=== PATIENT | female | born 1985 | race Caucasian/White ===

== ENCOUNTER 2017-11-15 17:00 | Inpatient (IN) | payer OTHER ==
[2017-11-15] MEDS: LR 1,000 ML IV PRN (19:46)
[2017-11-15] MEDS ORDERED: OXYTOCIN 20 UNIT in LR 1,000 ML IV PRN (19:47)
[2017-11-15] MEDS ORDERED: OLIVE OIL 118 ML BTL MISC PRN (19:47)
[2017-11-15] MEDS ORDERED: TERBUTALINE SULFATE 1 MG/ML VIAL IV PRN (19:47)
[2017-11-15] MEDS ORDERED: EPSOM SALT 454 GM TP PRN (19:47)
[2017-11-15] MEDS ORDERED: AMMONIA AROMATIC 1 EACH AMP IH PRN (19:47)
[2017-11-15 20:23] LABS: PLATELET COUNT 199 10^3/uL (150-400)
--- NOTE | 2017-11-15 20:24 | OBPROG ---
Labor Progress Note Assessment/Plan: Assessment:cat 1 fhr denies pain cytotec for ripening of cervix. discussed r/b/a/ pih labs p to C ratio for urine routine meds for asthma and allergys discussed POC with family and patient ok with POC Plan:iol, ripening with cytotec for gestational hyper tension/ consulted on POC with Dr. Smith 11/15/17 20:22 Subjective/Intrapartum Course: 11/15/17 20:21 Doing well denies pain. Denies questions. Discussed poc cytotec . probable davis bulb when able with dilation - SVE Dilation (cm): 1 Effacement (%): 50 Station: -3 Membranes: Intact - FHR Assessment Og FHR (bpm): 125 FHR Pattern Variability: Moderate FHR Category: 1 - Physical Exam General Appearance: WD/WN, alert, no apparent distress Respiratory: chest non-tender, lungs clear, normal breath sounds Cardiac/Chest: regular rate, rhythm Abdomen: normal bowel sounds Extremities: normal range of motion, Chevy's sign (negative bilaterally) DTR- Lower Extremities: Knee (R): 1+, Knee (L): 1+ (no clonus) Skin: normal color, warm/dry Neuro/Psych: no motor/sensory deficits, alert, normal mood/affect, oriented x 3 Oxytocin Orders Assessment - Pre-Induction/Augmentation Assessment Gestational Age: 37 week(s) and 2 day(s) ICD10 Worksheet Patient Problems: Problems Problem Status Onset iol for gestational hypertension Acute
[2017-11-15] MEDS ORDERED: ZOLPIDEM TARTRATE 5 MG TAB PO PRN (20:33)
[2017-11-15] MEDS ORDERED: BECLOMETHASONE QVAR 80 MDI IH SCH (21:00)
[2017-11-15] MEDS ORDERED: MISOPROSTOL 100 MCG TAB PO ONE (21:00)
[2017-11-15] MEDS: BECLOMETHASONE QVAR 80 MDI IH SCH (21:19)
--- NOTE | 2017-11-15 22:54 | GHP ---
[f rep st] HISTORY AND PHYSICAL DATE OF ADMISSION: 11/15/2017 HISTORY OF PRESENT ILLNESS: The patient is a 32-year-old, 1, para 0, with an EDC of 12/04/19 18, which gives her a gestational age of 37 and 2/7 weeks', who comes in for induction of labor for g estational hypertension. States feeling positive movement. Denies leaking, bleeding, cramping . Has been routinely seen with [facility] since 9 and 1/7 weeks' at 05/03/2017. Throughou t the , over time patient, has had elevated blood pressures. On 11/10/2017, 166/80. PIH la bs were within normal limits. The patient is GBS negative. MEDICAL HISTORY: The patient has a history of asthma, mild scoliosis, has nasal polyps, aspirin sens itivity. SURGERIES: Nasal polypectomy, ACL knee surgery. SOCIAL HISTORY: Patient is to [place]. Denies tobacco use. Denies drug use. With this pregn michelle, had a low-lying placenta, gestational hypertension. GYNECOLOGICAL HISTORY: Positive OCP use, NuvaRing and Mirena. Last Pap was 04/07/2017 that was with in normal limits. FAMILY HISTORY: Noncontributory. PHYSICAL ASSESSMENT: GENERAL: Patient is awake, alert, oriented x3. LUNGS: Clear bilaterally. AB DOMEN: Bowel sounds are positive in all 4 quadrants. EXTREMITIES: DTRs are 1+ bilaterally. No jordyn nus. Homans sign is negative bilaterally. Patient denies PIH symptoms. Blood pressure is elevated however not alarmingly so. PELVIC: The patient's cervix per Dr. Reid today in the office. Patien t was closed thick and high. A De Leon bulb was needed to be placed. PLAN OF CARE: 1. GBS negative. 2. Cytotec for ripening of cervix. 3. Consult Dr. Odalys Smith on plan of care. 4. De Leon bulb placement when able. 5. PIH labs as well as a P to C ratio. /[id number]/MODL
[2017-11-16] MEDS ORDERED: MISOPROSTOL 100 MCG TAB PO ONE ×2 (01:00→05:00)
[2017-11-16] MEDS: ACETAMINOPHEN 325 MG TAB PO PRN (01:41)
--- NOTE | 2017-11-16 04:41 | OBPROG ---
Labor Progress Note Assessment/Plan: Assessment:cat 1 fhr denies pain cytotec for ripening of cervix. 3 rd doseambien to rest pih labs wnl p to c 445 routine meds for asthma and allergys ordered irregular contractions Plan:iol, ripening with cytotec for gestational hyper tension/ consulted on POC with Dr. Smith 11/15/17 20:22 11/16/17 04:39 Subjective/Intrapartum Course: 11/15/17 20:21 Doing well denies pain. Denies questions. Discussed poc cytotec . probable davis bulb when able with dilation 11/16/17 04:38 Sleeping through irregular contractions Objective: 11/15/17 19:45 11/15/17 19:45 Patient ABO/Rh O POSITIVE 11/15/17 19:45 Uric Acid 5.3 mg/dL (2.5-6.8) 11/15/17 19:45 Total Bilirubin 0.2 mg/dL (0.1-1.4) 11/15/17 19:45 Conjugated Bilirubin 0.2 mg/dL (0.0-0.5) 11/15/17 19:45 Unconjugated Bilirubin 0.0 mg/dL (0.0-1.1) 11/15/17 19:45 AST 28 IU/L (14-46) 11/15/17 19:45 ALT 38 IU/L (9-52) 11/15/17 19:45 Lactate Dehydrogenase 666 IU/L (313-618) H 11/15/17 19:45 - SVE Membranes: Intact - Contraction Pattern Assessment Current Contraction Pattern: Irregular - FHR Assessment Og FHR (bpm): 145 FHR Pattern Variability: Moderate FHR Category: 2 Oxytocin Orders Assessment - Pre-Induction/Augmentation Assessment Gestational Age: 37 week(s) and 2 day(s) ICD10 Worksheet Patient Problems: Problems Problem Status Onset iol for gestational hypertension Acute
[2017-11-16] MEDS: CETIRIZINE 10 MG TAB PO SCH (09:20)
[2017-11-16] MEDS: BECLOMETHASONE QVAR 80 MDI IH SCH ×2 (09:23→21:43)
[2017-11-16] MEDS: MONTELUKAST SODIUM 10 MG TAB PO SCH (09:26)
--- NOTE | 2017-11-16 09:39 | OBPROG ---
Labor Progress Note Assessment/Plan: Assessment: IUP at 37 wks gestational hypertension for induction unfavorable cx and rec'd cytotec through noc Plan: cx now FT/50/soft will attempt davis placement 11/16/17 09:36 Subjective/Intrapartum Course: 11/15/17 20:21 Doing well denies pain. Denies questions. Discussed poc cytotec . probable davis bulb when able with dilation 11/16/17 04:38 Sleeping through irregular contractions 11/16/17 09:37 Pt slept through noc. not feeling ctxns. no COSEM or visual changes. cx FT/50/ soft -- will attempt davis Objective: 11/15/17 19:45 11/15/17 19:45 Patient ABO/Rh O POSITIVE 11/15/17 19:45 Uric Acid 5.3 mg/dL (2.5-6.8) 11/15/17 19:45 Total Bilirubin 0.2 mg/dL (0.1-1.4) 11/15/17 19:45 Conjugated Bilirubin 0.2 mg/dL (0.0-0.5) 11/15/17 19:45 Unconjugated Bilirubin 0.0 mg/dL (0.0-1.1) 11/15/17 19:45 AST 28 IU/L (14-46) 11/15/17 19:45 ALT 38 IU/L (9-52) 11/15/17 19:45 Lactate Dehydrogenase 666 IU/L (313-618) H 11/15/17 19:45 - SVE Dilation (cm): 1 (FT) Effacement (%): 50 Station: -3 Membranes: Intact - Contraction Pattern Assessment Current Contraction Pattern: Irregular - FHR Assessment Og FHR (bpm): 140 FHR Pattern Variability: Moderate FHR Category: 1 Oxytocin Orders Assessment - Pre-Induction/Augmentation Assessment Gestational Age: 37 week(s) and 2 day(s) ICD10 Worksheet Patient Problems: Problems Problem Status Onset iol for gestational hypertension Acute
--- NOTE | 2017-11-16 11:16 | OBPROG ---
Labor Progress Note Assessment/Plan: Assessment: IUP at 37 wks gestational hypertension for induction davis placement for ripening Plan: cx now FT/50/soft dvais placement 11/16/17 09:36 11/16/17 11:13 Subjective/Intrapartum Course: 11/15/17 20:21 Doing well denies pain. Denies questions. Discussed poc cytotec . probable davis bulb when able with dilation 11/16/17 04:38 Sleeping through irregular contractions 11/16/17 09:37 Pt slept through noc. not feeling ctxns. no COSME or visual changes. cx FT/50/ soft -- will attempt davis 11/16/17 11:13 Pt doing ok, not having COSME or visual changes, ok with davis -- after placement, pt doing fine, mild cramps. Disc baby's status looking good - will take off monitoring for now, will give davis 8 hours before reassessing. Objective: 11/15/17 19:45 11/15/17 19:45 Patient ABO/Rh O POSITIVE 11/15/17 19:45 Uric Acid 5.3 mg/dL (2.5-6.8) 11/15/17 19:45 Total Bilirubin 0.2 mg/dL (0.1-1.4) 11/15/17 19:45 Conjugated Bilirubin 0.2 mg/dL (0.0-0.5) 11/15/17 19:45 Unconjugated Bilirubin 0.0 mg/dL (0.0-1.1) 11/15/17 19:45 AST 28 IU/L (14-46) 11/15/17 19:45 ALT 38 IU/L (9-52) 11/15/17 19:45 Lactate Dehydrogenase 666 IU/L (313-618) H 11/15/17 19:45 - SVE Dilation (cm): 1 Effacement (%): 50 Station: -3 Membranes: Intact - Contraction Pattern Assessment Current Contraction Pattern: Irregular - FHR Assessment Og FHR (bpm): 150 FHR Pattern Variability: Moderate FHR Category: 1 - Procedures Non-surgical Procedures: Other (Specify) (davis cath placement into cervix. cx cleansed off with betadine 4x4s - four, and then davis placed without problems into cx) Oxytocin Orders Assessment - Pre-Induction/Augmentation Assessment Gestational Age: 37 week(s) and 2 day(s) ICD10 Worksheet Patient Problems: Problems Problem Status Onset iol for gestational hypertension Acute
[2017-11-16] MEDS ORDERED: ALBUTEROL 60 PUFFS/8 GM MDI IH PRN (17:35)
[2017-11-16 18:36] LABS: PLATELET COUNT 186 10^3/uL (150-400)
[2017-11-16] MEDS ORDERED: LR 500 ML IV PRN (20:08)
[2017-11-16] MEDS ORDERED: OXYTOCIN 30 UNIT in NS 500 ML IV SCH (20:15)
--- NOTE | 2017-11-16 20:16 | OBPROG ---
Labor Progress Note Assessment/Plan: Assessment: IUP at 37 wks, B/P increased after some bld noted with cath - labs stable gestational hypertension for induction asthma davis replaced for further ripening Plan: cx now - davis placement 11/16/17 09:36 11/16/17 11:13 11/16/17 20:10 Subjective/Intrapartum Course: 11/15/17 20:21 Doing well denies pain. Denies questions. Discussed poc cytotec . probable davis bulb when able with dilation 11/16/17 04:38 Sleeping through irregular contractions 11/16/17 09:37 Pt slept through noc. not feeling ctxns. no COSME or visual changes. cx FT/50/ soft -- will attempt davis 11/16/17 11:13 Pt doing ok, not having COSME or visual changes, ok with davis -- after placement, pt doing fine, mild cramps. Disc baby's status looking good - will take off monitoring for now, will give davis 8 hours before reassessing. 11/16/17 20:11 some bld noted with cath - pt's anxiety increased and b/p up to 170s/ 90s..repeat PIH labs normal. b/p better - to 150s/70s with resting. reporting cramping /10. davis out and cx - Objective: 11/16/17 18:22 11/16/17 18:22 Patient ABO/Rh O POSITIVE 11/15/17 19:45 Uric Acid 5.6 mg/dL (2.5-6.8) 11/16/17 18:22 Total Bilirubin 0.2 mg/dL (0.1-1.4) 11/16/17 18:22 Conjugated Bilirubin 0.1 mg/dL (0.0-0.5) 11/16/17 18:22 Unconjugated Bilirubin 0.1 mg/dL (0.0-1.1) 11/16/17 18:22 AST 24 IU/L (14-46) 11/16/17 18:22 ALT 38 IU/L (9-52) 11/16/17 18:22 Lactate Dehydrogenase 586 IU/L (313-618) 11/16/17 18:22 - SVE Dilation (cm): 1 Effacement (%): 80 Station: -2 Membranes: Intact - Contraction Pattern Assessment Current Contraction Pattern: Irregular - FHR Assessment Og FHR (bpm): 140 FHR Pattern Variability: Moderate FHR Category: 1 - Procedures Non-surgical Procedures: Other (Specify) (davis replaced - easy replacement with another davis to cont ripening) Oxytocin Orders Assessment - Pre-Induction/Augmentation Assessment Gestational Age: 37 week(s) and 2 day(s) ICD10 Worksheet Patient Problems: Problems Problem Status Onset iol for gestational hypertension Acute
[2017-11-17] MEDS: LR 1,000 ML IV PRN ×2 (06:00→20:33)
[2017-11-17] MEDS ORDERED: OLIVE OIL 118 ML BTL ONE (06:37)
[2017-11-17] MEDS ORDERED: LIDOCAINE 1% 300 MG/30 ML SDV ONE (06:37)
[2017-11-17] MEDS ORDERED: OXYTOCIN 10 UNIT/ML VIAL ONE (06:38)
[2017-11-17] MEDS ORDERED: AMMONIA AROMATIC 1 EACH AMP IH ONE (06:38)
[2017-11-17] MEDS ORDERED: TERBUTALINE SULFATE 1 MG/ML VIAL ONE (06:38)
[2017-11-17] MEDS ORDERED: MISOPROSTOL 200 MCG TAB ONE (06:38)
--- NOTE | 2017-11-17 07:50 | OBPROG ---
Labor Progress Note Assessment/Plan: Assessment: Plan: Subjective/Intrapartum Course: 11/15/17 20:21 Doing well denies pain. Denies questions. Discussed poc cytotec . probable davis bulb when able with dilation 11/16/17 04:38 Sleeping through irregular contractions 11/16/17 09:37 Pt slept through noc. not feeling ctxns. no COSME or visual changes. cx FT/50/ soft -- will attempt davis 11/16/17 11:13 Pt doing ok, not having COSME or visual changes, ok with davis -- after placement, pt doing fine, mild cramps. Disc baby's status looking good - will take off monitoring for now, will give davis 8 hours before reassessing. 11/16/17 20:11 some bld noted with cath - pt's anxiety increased and b/p up to 170s/ 90s..repeat PIH labs normal. b/p better - to 150s/70s with resting. reporting cramping /10. davis out and cx 1-2/-2 11/17/17 07:54 Patient is doing well this morning and is starting starting to feel cramping. + FM + vaginal spotting. Objective: 11/16/17 18:22 11/16/17 18:22 Patient ABO/Rh O POSITIVE 11/15/17 19:45 Uric Acid 5.6 mg/dL (2.5-6.8) 11/16/17 18:22 Total Bilirubin 0.2 mg/dL (0.1-1.4) 11/16/17 18:22 Conjugated Bilirubin 0.1 mg/dL (0.0-0.5) 11/16/17 18:22 Unconjugated Bilirubin 0.1 mg/dL (0.0-1.1) 11/16/17 18:22 AST 24 IU/L (14-46) 11/16/17 18:22 ALT 38 IU/L (9-52) 11/16/17 18:22 Lactate Dehydrogenase 586 IU/L (313-618) 11/16/17 18:22 - SVE Dilation (cm): 3 Effacement (%): Less than 50 Station: -3 Membranes: Intact - Contraction Pattern Assessment Current Contraction Pattern: Irregular - FHR Assessment Og FHR (bpm): 130 FHR Pattern Variability: Moderate FHR Category: 1 - Procedures Non-surgical Procedures: Other (Specify) (davis replaced - easy replacement with another davis to cont ripening) - AP Antepartum Course: 11/17/17 07:56 IUP at 37 weeks IOL Hypertension normal blood pressured 11/17/17 07:57 PLan Davis balloon removed Cephalic presentation confirmed by ultrasound Ok for regular diet Pitocin PLan for AROM Oxytocin Orders Assessment - Pre-Induction/Augmentation Assessment Gestational Age: 37 week(s) and 2 day(s) ICD10 Worksheet Patient Problems: Problems Problem Status Onset iol for gestational hypertension Acute
[2017-11-17] MEDS: BECLOMETHASONE QVAR 80 MDI IH SCH ×2 (09:07→23:09)
[2017-11-17] MEDS: CETIRIZINE 10 MG TAB PO SCH (09:37)
[2017-11-17] MEDS ORDERED: fentaNYL 2MCG/ML/BUP 0.1% RTU 100 ML BAG EP ONE (13:45)
[2017-11-17] MEDS ORDERED: PHENYLEPHRINE HCL 100 MCG/ML SYR ONE (13:45)
[2017-11-17] MEDS ORDERED: BUPIVACAINE 0.25% 30 ML SDV ONE (13:45)
[2017-11-17] MEDS ORDERED: PHENYLEPHRINE HCL 100 MCG/ML SYR IVP PRN (14:06)
[2017-11-17] MEDS ORDERED: NALOXONE HCL 0.4 MG/ML INJ IVP PRN (14:06)
[2017-11-17] MEDS ORDERED: ONDANSETRON 4 MG/2 ML VIAL IVP PRN (14:06)
--- NOTE | 2017-11-17 14:10 | PREANESOB ---
Obstetric Pre-Anesthesia Info - General Info Proposed Procedure: CSE for L -> : 1 Para: 0 FAB: 12/04/17 Gestational Age: 37 week(s) and 2 day(s) - Info Status: Premature (37 3/7 PIH induction) - Labor Status Cervical Dilation per last OB SVE: 3 Station per last OB SVE: -3 Pitocin: Planned PIH: Moderate Magnesium Sulfate in Use: No Indications for Labor Analgesia: Augmentation of Labor, Induction of Labor Labor Epidural: Proposed Anesthesia ROS: triad asthma Allergies/Adverse Reactions: Allergy/AdvReac Type Severity Reaction Status Date / Time aspirin Allergy Verified 11/15/17 18:30 NSAIDS (Non-Steroidal Allergy sneezy and Verified 11/16/17 07:06 Anti-Inflamma wheezing Home Medications: Medication Instructions Recorded CETIRIZINE HCL 10 mg DAILY 11/15/17 Montelukast Sodium 11/15/17 Qvar 80 (*) PRN 11/15/17 Visit Medications: Generic Name Dose Route Start Last Admin Trade Name Mel PRN Reason Stop Dose Admin Acetaminophen 650 mg 11/16/17 01:26 11/16/17 01:41 Tylenol PO 05/15/18 01:25 650 mg Q4HRS PRN Administration Pain, Mild/Fever, Can Take PO Albuterol 2 puffs 11/16/17 17:35 Proventil Inhaler 05/15/18 17:34 Q4HRS PRN Short of Breath/Dyspnea Ammonia (Aromatic Spirit) 1 each 11/15/17 19:47 Ammonia Aromatic 11/25/17 19:46 ONCE PRN Fainting Beclomethasone Dipropionate 1 puffs 11/15/17 21:00 11/17/17 09:07 Qvar 80 05/14/18 20:59 1 puffs BID ROB Administration Cetirizine HCl 10 mg 11/16/17 09:00 11/17/17 09:37 Zyrtec PO 05/15/18 08:59 10 mg DAILY ROB Administration Oxytocin 20 unit/ Lactated 1,002 mls @ 150 mls/hr 11/15/17 19:47 Ringer's IV PRN PRN Post- bleeding Lactated Ringer's 500 mls @ 500 mls/hr 11/16/17 20:08 Lr IV 11/17/17 20:08 PRN PRN Maternal Hypotension Oxytocin 30 unit/ Sodium 503 mls @ 0 mls/hr 11/16/17 20:15 11/17/17 06:02 Chloride IV 05/15/18 20:14 503 mls CONT ROB Administration Protocol Per Protocol Magnesium Sulfate 454 gm 11/15/17 19:47 Epsom Salt TP 05/14/18 19:46 Q1H PRN perineal discomfort Montelukast Sodium 10 mg 11/16/17 18:00 11/16/17 09:26 Singulair PO 05/15/18 17:59 10 mg DAILY@1800 ROB Administration [place] Oil 118 ml 11/15/17 19:47 Sweet Oil MISC 05/14/18 19:46 ONCE PRN perineal massage Terbutaline Sulfate 0.25 mg 11/15/17 19:47 Brethine IV 05/14/18 19:46 ONCE PRN Tachysystole Zolpidem Tartrate 10 mg 11/15/17 20:33 11/16/17 01:21 Ambien PO 05/14/18 20:32 10 mg HS PRN Administration Sleep/Insomnia Discontinued Medications Generic Name Dose Route Start Last Admin Trade Name Freq PRN Reason Stop Dose Admin Ammonia (Aromatic Spirit) Confirm 11/17/17 06:38 Ammonia Aromatic Administered 11/17/17 06:39 Dose 1 each IH .STK-MED ONE Beclomethasone Dipropionate 1 puffs 11/15/17 21:00 Qvar 80 IH 05/14/18 20:59 BID [facility] Bupivacaine HCl Confirm 11/17/17 13:45 Sensorcaine 0.25% Sdv Administered 11/17/17 13:46 Dose 30 ml .ROUTE .STK-MED ONE Fentanyl/Bupivacaine HCl Confirm 11/17/17 13:45 Fentanyl/Bupivacaine/Ns 2 Mcg/Ml 0.1% (Premix Administered 11/17/17 13:46 Dose 100 ml EP .STK-MED ONE Lactated Ringer's 1,000 mls @ 0 mls/hr 11/15/17 19:47 11/17/17 06:00 Lr IV 11/16/17 19:46 1,000 mls PRN PRN Administration SEE PROTOCOL CONDITIONS Protocol Per Protocol Lidocaine HCl Confirm 11/17/17 06:37 Lidocaine Hcl 1% Administered 11/17/17 06:38 Dose 300 mg .ROUTE .STK-MED ONE Misoprostol 50 mcg 11/15/17 21:00 11/15/17 21:11 Cytotec PO 11/15/17 21:01 50 mcg ONCE ONE Administration Misoprostol 50 mcg 11/16/17 01:00 11/16/17 01:16 Cytotec PO 11/16/17 01:01 50 mcg ONCE ONE Administration Misoprostol 50 mcg 11/16/17 05:00 11/16/17 05:09 Cytotec PO 11/16/17 05:01 50 mcg ONCE ONE Administration Misoprostol Confirm 11/17/17 06:38 Cytotec Administered 11/17/17 06:39 Dose 1,000 mcg .ROUTE .STK-MED ONE [place] Oil Confirm 11/17/17 06:37 Sweet Oil Administered 11/17/17 06:38 Dose 118 ml .ROUTE .STK-MED ONE Oxytocin Confirm 11/17/17 06:38 Pitocin Administered 11/17/17 06:39 Dose 30 unit .ROUTE .STK-MED ONE Phenylephrine HCl Confirm 11/17/17 13:45 Neosynephrine Administered 11/17/17 13:46 Dose 1,000 mcg .ROUTE .STK-MED ONE Terbutaline Sulfate Confirm 11/17/17 06:38 Brethine Administered 11/17/17 06:39 Dose 1 mg .ROUTE .STK-MED ONE - Anesthesia History Response to Local Anesthetics: Normal Anesthesia & Operative History: No Prior Problems Family Anesthesia History: Negative - Social History Substance Use/Abuse: ETOH - Vital Signs Latest Vital Signs (Nursing): see ob trace[place] Height/Weight (Nursing): Height 167.64 cm Weight 105.687 kg - Focused Exam Neck exam: FROM Mallampati Score: Class 2 Mouth exam: normal dental/mouth exam Pulmonary: no respiratory distress Cardiovascular: regular rate and rhythym Labs: 11/16/17 18:22 11/16/17 18:22 Patient ABO/Rh O POSITIVE 11/15/17 19:45 Uric Acid 5.6 mg/dL (2.5-6.8) 11/16/17 18:22 Total Bilirubin 0.2 mg/dL (0.1-1.4) 11/16/17 18:22 Conjugated Bilirubin 0.1 mg/dL (0.0-0.5) 11/16/17 18:22 Unconjugated Bilirubin 0.1 mg/dL (0.0-1.1) 11/16/17 18:22 AST 24 IU/L (14-46) 11/16/17 18:22 ALT 38 IU/L (9-52) 11/16/17 18:22 Lactate Dehydrogenase 586 IU/L (313-618) 11/16/17 18:22 - Plan Consent Signed and on Chart: Yes Patient/Guardian Understands and Agrees to Plan: Yes General Comments: CSE for L
--- NOTE | 2017-11-17 14:22 | OBPROG ---
Labor Progress Note Assessment/Plan: Assessment: IUP at 37 weeks gestation IOL Early labor Davis balloon out Plan: ARom clear fluid IUPC placed Continue on pitocin 11/17/17 14:19 Subjective/Intrapartum Course: 11/15/17 20:21 Doing well denies pain. Denies questions. Discussed poc cytotec . probable davis bulb when able with dilation 11/16/17 04:38 Sleeping through irregular contractions 11/16/17 09:37 Pt slept through noc. not feeling ctxns. no COSME or visual changes. cx FT/50/ soft -- will attempt davis 11/16/17 11:13 Pt doing ok, not having COSME or visual changes, ok with davis -- after placement, pt doing fine, mild cramps. Disc baby's status looking good - will take off monitoring for now, will give davis 8 hours before reassessing. 11/16/17 20:11 some bld noted with cath - pt's anxiety increased and b/p up to 170s/ 90s..repeat PIH labs normal. b/p better - to 150s/70s with resting. reporting cramping 3/10. davis out and cx 1-2/80/-2 11/17/17 07:54 Patient is doing well this morning and is starting starting to feel cramping. + FM + vaginal spotting. 11/17/17 14:21 Patient is comfortable with epidural. +FM Objective: 11/16/17 18:22 11/16/17 18:22 Patient ABO/Rh O POSITIVE 11/15/17 19:45 Uric Acid 5.6 mg/dL (2.5-6.8) 11/16/17 18:22 Total Bilirubin 0.2 mg/dL (0.1-1.4) 11/16/17 18:22 Conjugated Bilirubin 0.1 mg/dL (0.0-0.5) 11/16/17 18:22 Unconjugated Bilirubin 0.1 mg/dL (0.0-1.1) 11/16/17 18:22 AST 24 IU/L (14-46) 11/16/17 18:22 ALT 38 IU/L (9-52) 11/16/17 18:22 Lactate Dehydrogenase 586 IU/L (313-618) 11/16/17 18:22 - SVE Dilation (cm): 3, 4 Effacement (%): 80 Station: -3 Membranes: AROM (Clear fluid IUPC placed), Intact Amniotic Fluid Color: Clear - Contraction Pattern Assessment Current Contraction Pattern: Irregular - Procedures Non-surgical Procedures: Amniotomy, Other (Specify) (davis replaced - easy replacement with another davis to cont ripening) - AP Antepartum Course: 11/17/17 07:56 IUP at 37 weeks IOL Hypertension normal blood pressured 11/17/17 07:57 PLan Davis balloon removed Cephalic presentation confirmed by ultrasound Ok for regular diet Pitocin PLan for AROM Oxytocin Orders Assessment - Pre-Induction/Augmentation Assessment Gestational Age: 37 week(s) and 2 day(s) ICD10 Worksheet Patient Problems: Problems Problem Status Onset iol for gestational hypertension Acute
[2017-11-17] MEDS ORDERED: fentaNYL 2MCG/ML/BUP 0.1% RTU 100 ML EP SCH (14:30)
[2017-11-17] MEDS ORDERED: LR 500 ML IV SCH (14:30)
--- NOTE | 2017-11-17 19:43 | OBPROG ---
Labor Progress Note Assessment/Plan: Assessment: [id number] with IUP@ 37-4wks IOL 2/2 GHTN Cat 1 FHR tracing GBS Negative Plan: cont pitocin titration reassess 2hr/PRN anticipate discussed with Dr. Barbara Russo- agrees with POC 11/17/17 19:45 Subjective/Intrapartum Course: 11/15/17 20:21 Doing well denies pain. Denies questions. Discussed poc cytotec . probable davis bulb when able with dilation 11/16/17 04:38 Sleeping through irregular contractions 11/16/17 09:37 Pt slept through noc. not feeling ctxns. no COSME or visual changes. cx FT/50/ soft -- will attempt davis 11/16/17 11:13 Pt doing ok, not having COSME or visual changes, ok with davis -- after placement, pt doing fine, mild cramps. Disc baby's status looking good - will take off monitoring for now, will give davis 8 hours before reassessing. 11/16/17 20:11 some bld noted with cath - pt's anxiety increased and b/p up to 170s/ 90s..repeat PIH labs normal. b/p better - to 150s/70s with resting. reporting cramping 3/10. davis out and cx 1-2/-2 11/17/17 07:54 Patient is doing well this morning and is starting starting to feel cramping. + FM + vaginal spotting. 11/17/17 14:21 Patient is comfortable with epidural. +FM 11/17/17 19:46 Pt doing well, denies any pain, comfortable with WENDI. FOB @ BS, supportive Objective: 11/16/17 18:22 11/16/17 18:22 Patient ABO/Rh O POSITIVE 11/15/17 19:45 Uric Acid 5.6 mg/dL (2.5-6.8) 11/16/17 18:22 Total Bilirubin 0.2 mg/dL (0.1-1.4) 11/16/17 18:22 Conjugated Bilirubin 0.1 mg/dL (0.0-0.5) 11/16/17 18:22 Unconjugated Bilirubin 0.1 mg/dL (0.0-1.1) 11/16/17 18:22 AST 24 IU/L (14-46) 11/16/17 18:22 ALT 38 IU/L (9-52) 11/16/17 18:22 Lactate Dehydrogenase 586 IU/L (313-618) 11/16/17 18:22 - SVE Dilation (cm): 3 Effacement (%): 50 Station: -2 Membranes: AROM (Clear fluid IUPC placed), Intact Amniotic Fluid Color: Clear - Contraction Pattern Assessment Current Contraction Pattern: Irregular - Procedures Non-surgical Procedures: Amniotomy, IUPC (IUPC in place-MVUs >200), Other ( Specify) (davis replaced - easy replacement with another davis to cont ripening) - AP Antepartum Course: 11/17/17 07:56 IUP at 37 weeks IOL Hypertension normal blood pressured 11/17/17 07:57 PLan Davis balloon removed Cephalic presentation confirmed by ultrasound Ok for regular diet Pitocin PLan for AROM Oxytocin Orders Assessment - Pre-Induction/Augmentation Assessment Gestational Age: 37 week(s) and 2 day(s) ICD10 Worksheet Patient Problems: Problems Problem Status Onset iol for gestational hypertension Acute
[2017-11-17] MEDS: ACETAMINOPHEN 325 MG TAB PO PRN (21:21)
[2017-11-18] MEDS: MONTELUKAST SODIUM 10 MG TAB PO SCH ×2 (00:50→19:05)
[2017-11-18] MEDS ORDERED: HYDROCORTISONE 0.5% CREAM TP PRN (01:25)
[2017-11-18] MEDS ORDERED: SIMETHICONE 80 MG TAB CHEW PO PRN (01:25)
[2017-11-18] MEDS ORDERED: DOCUSATE SODIUM 100 MG CAP PO PRN (01:25)
[2017-11-18] MEDS ORDERED: HYDROCODONE/APAP 5/325 TAB PO PRN (01:25)
--- NOTE | 2017-11-18 01:29 | OBDEL ---
Info Type: Vaginal Presentation at Delivery: Vertex L&D Analgesia/Anesthesia Type: Epidural GBS+: No Intrapartum Medications: Generic Name Dose Route Start Last Admin Trade Name Mel PRN Reason Stop Dose Admin Acetaminophen 650 mg 11/16/17 01:26 11/17/17 21:21 Tylenol PO 05/15/18 01:25 650 mg Q4HRS PRN Administration Pain, Mild/Fever, Can Take PO Beclomethasone Dipropionate 1 puffs 11/15/17 21:00 11/17/17 23:09 Qvar 80 IH 05/14/18 20:59 Not Given BID ROB Cetirizine HCl 10 mg 11/16/17 09:00 11/17/17 09:37 Zyrtec PO 05/15/18 08:59 10 mg DAILY ROB Administration Oxytocin 30 unit/ Sodium 503 mls @ 0 mls/hr 11/16/17 20:15 11/17/17 06:02 Chloride IV 05/15/18 20:14 503 mls CONT ROB Administration Protocol Per Protocol Fentanyl/Bupivacaine HCl 100 mls @ 0 mls/hr 11/17/17 14:30 11/17/17 21:21 Fentanyl/Bupivacaine/Ns 2 Mcg/Ml 0.1% (Premix EP 11/27/17 14:29 100 mls CONT ROB Administration Protocol As Directed Montelukast Sodium 10 mg 11/16/17 18:00 11/18/17 00:50 Singulair PO 05/15/18 17:59 Not Given DAILY@1800 ROB Zolpidem Tartrate 10 mg 11/15/17 20:33 11/16/17 01:21 Ambien PO 05/14/18 20:32 10 mg HS PRN Administration Sleep/Insomnia Discontinued Medications Generic Name Dose Route Start Last Admin Trade Name Mel PRN Reason Stop Dose Admin Lactated Ringer's 1,000 mls @ 0 mls/hr 11/15/17 19:47 11/17/17 20:33 Lr IV 11/16/17 19:46 1,000 mls PRN PRN Administration SEE PROTOCOL CONDITIONS Protocol Per Protocol Misoprostol 50 mcg 11/15/17 21:00 11/15/17 21:11 Cytotec PO 11/15/17 21:01 50 mcg ONCE ONE Administration Misoprostol 50 mcg 11/16/17 01:00 11/16/17 01:16 Cytotec PO 11/16/17 01:01 50 mcg ONCE ONE Administration Misoprostol 50 mcg 11/16/17 05:00 11/16/17 05:09 Cytotec PO 11/16/17 05:01 50 mcg ONCE ONE Administration - Hospital Course Intrapartum: 11/15/17 20:21 Doing well denies pain. Denies questions. Discussed poc cytotec . probable davis bulb when able with dilation 11/16/17 04:38 Sleeping through irregular contractions 11/16/17 09:37 Pt slept through noc. not feeling ctxns. no COSME or visual changes. cx FT/50/ soft -- will attempt davis 11/16/17 11:13 Pt doing ok, not having COSME or visual changes, ok with davis -- after placement, pt doing fine, mild cramps. Disc baby's status looking good - will take off monitoring for now, will give davis 8 hours before reassessing. 11/16/17 20:11 some bld noted with cath - pt's anxiety increased and b/p up to 170s/ 90s..repeat PIH labs normal. b/p better - to 150s/70s with resting. reporting cramping 3/10. davis out and cx 1-2/80/-2 11/17/17 07:54 Patient is doing well this morning and is starting starting to feel cramping. + FM + vaginal spotting. 11/17/17 14:21 Patient is comfortable with epidural. +FM 11/17/17 19:46 Pt doing well, denies any pain, comfortable with WENDI. FOB @ BS, supportive Indications for Delivery: Gestational Hypertension Vaginal Delivery - Delivery Provider Delivery Physician/CNM: Melonie Newman - Labor and Delivery Onset of Contractions Date: 11/17/17 Onset of Contractions Time: 17:30 Onset of Contractions Type: Induced Rupture of Membranes Date: 11/17/17 Rupture of Membranes Time: 14:15 Rupture of Membranes Type: Artificial Amniotic Fluid Color: Clear Dilation Complete Date: 11/17/17 Dilation Complete Time: 22:51 Placenta Delivery Date: 11/17/17 Placenta Delivery Time: 23:15 Total Hours of Labor: 5 Non-surgical Procedures: Amniotomy, IUPC (IUPC in place-MVUs >200), Other ( Specify) (davis replaced - easy replacement with another davis to cont ripening) Laceration: 1st Degree Repair: 3-0 Vaginal Sponge Count Correct: Yes Vaginal Needle Count Correct: Yes Vaginal Sweep Performed: Yes EBL: 200 Delivery Events: Nuchal Cord Delivery Comment: pushed <20 min; nuchal x1, loose- reduced - Medications Labor Augmentation/Induction Methods Used: Pitocin Data FAB: 12/04/17 Gestational Age: 37 week(s) and 5 day(s) Og Delivery Date: 11/17/17 Delivery Time: 23:04 Sex of Infant: Male Score (1 Min): 8 Score (5 Min): 9 ICD10 Worksheet Patient Problems: Problems Problem Status Onset First degree perineal laceration during delivery Acute (spontaneous vaginal delivery) Acute iol for gestational hypertension Acute - ICD10 Problem Qualifiers (1) (spontaneous vaginal delivery) (2) First degree perineal laceration during delivery
--- NOTE | 2017-11-18 08:29 | OBPP ---
Progress Note Assessment/Plan: Assessment: day #1 s/p Stable afebrile Plan: Continue routine post care 11/17/17 14:19 11/18/17 08:27 Objective: 11/18/17 05:14 11/16/17 18:22 Patient ABO/Rh O POSITIVE 11/15/17 19:45 Uric Acid 5.6 mg/dL (2.5-6.8) 11/16/17 18:22 Total Bilirubin 0.2 mg/dL (0.1-1.4) 11/16/17 18:22 Conjugated Bilirubin 0.1 mg/dL (0.0-0.5) 11/16/17 18:22 Unconjugated Bilirubin 0.1 mg/dL (0.0-1.1) 11/16/17 18:22 AST 24 IU/L (14-46) 11/16/17 18:22 ALT 38 IU/L (9-52) 11/16/17 18:22 Lactate Dehydrogenase 586 IU/L (313-618) 11/16/17 18:22 Temp Pulse Resp BP Pulse Ox 37.1 C 81 18 159/79 H 95 11/18/17 02:25 11/18/17 07:10 11/18/17 02:25 11/18/17 07:10 11/18/17 02:25 Uterine Position/Fundal Height: Umbilicus -2 Uterine Tone: Firm Physical Exam - Physical Exam Neck: non-tender, full range of motion Respiratory: chest non-tender, lungs clear, normal breath sounds Cardiac/Chest: normal peripheral pulses, regular rate, rhythm Abdomen: normal bowel sounds, hypoactive bowel sounds Extremities: normal range of motion, non-tender Skin: normal color, warm/dry Neuro/Psych: no motor/sensory deficits, alert, normal mood/affect, oriented x 3
[2017-11-18] MEDS: BECLOMETHASONE QVAR 80 MDI IH SCH ×2 (09:00→23:07)
[2017-11-18] MEDS: ACETAMINOPHEN 325 MG TAB PO PRN (20:42)
[2017-11-18] MEDS ORDERED: SUCROSE 1 EA UDL ONE (23:37)
[2017-11-19] MEDS: BECLOMETHASONE QVAR 80 MDI IH SCH (08:19)
--- NOTE | 2017-11-19 08:44 | OBPP ---
Progress Note Assessment/Plan: Assessment: day #2 s/p Stable afebrile Ready to discharge home Plan: Continue routine post care 11/17/17 14:19 11/18/17 08:27 11/19/17 08:44 Discharge home Follow up in 4 and 6 weeks Return precautions given Subjective/ Course: 11/19/17 08:45 Patient doing well, tolerating diet, ambulation and breast feeding and flatus Objective: 11/18/17 05:14 11/16/17 18:22 Patient ABO/Rh O POSITIVE 11/15/17 19:45 Uric Acid 5.6 mg/dL (2.5-6.8) 11/16/17 18:22 Total Bilirubin 0.2 mg/dL (0.1-1.4) 11/16/17 18:22 Conjugated Bilirubin 0.1 mg/dL (0.0-0.5) 11/16/17 18:22 Unconjugated Bilirubin 0.1 mg/dL (0.0-1.1) 11/16/17 18:22 AST 24 IU/L (14-46) 11/16/17 18:22 ALT 38 IU/L (9-52) 11/16/17 18:22 Lactate Dehydrogenase 586 IU/L (313-618) 11/16/17 18:22 Temp Pulse Resp BP Pulse Ox 37.1 C 96 12 148/103 H 94 11/18/17 19:15 11/19/17 08:22 11/19/17 08:22 11/18/17 19:15 11/19/17 08:22 Uterine Position/Fundal Height: Umbilicus -2 Uterine Tone: Firm Physical Exam - Physical Exam Respiratory: chest non-tender, lungs clear Cardiac/Chest: normal peripheral pulses, regular rate, rhythm, edema (3+) Abdomen: normal bowel sounds, non-tender, soft Skin: normal color, warm/dry Neuro/Psych: no motor/sensory deficits, alert, normal mood/affect, oriented x 3
[2017-11-19 08:46] VITALS: BP 145/96; PULSE 95; RESP 19; TEMP 97.5; O2SAT 95
--- NOTE | 2017-11-19 08:48 | OBGCSDC ---
General Delivery Information - General Info : 1 Para: 1 Abortions: 0 Type: Vaginal L&D Analgesia/Anesthesia Type: Epidural, Nitrous Admission Date: 11/15/17 Labs: Patient ABO/Rh O POSITIVE 11/15/17 19:45 Hct 33.6 % (38.0-47.0) L 11/18/17 05:14 - Hospital Course Antepartum: 11/17/17 07:56 IUP at 37 weeks IOL Hypertension normal blood pressured 11/17/17 07:57 PLan Davis balloon removed Cephalic presentation confirmed by ultrasound Ok for regular diet Pitocin PLan for AROM Intrapartum: 11/15/17 20:21 Doing well denies pain. Denies questions. Discussed poc cytotec . probable davis bulb when able with dilation 11/16/17 04:38 Sleeping through irregular contractions 11/16/17 09:37 Pt slept through noc. not feeling ctxns. no COSME or visual changes. cx FT/50/ soft -- will attempt davis 11/16/17 11:13 Pt doing ok, not having COSME or visual changes, ok with davis -- after placement, pt doing fine, mild cramps. Disc baby's status looking good - will take off monitoring for now, will give davis 8 hours before reassessing. 11/16/17 20:11 some bld noted with cath - pt's anxiety increased and b/p up to 170s/ 90s..repeat PIH labs normal. b/p better - to 150s/70s with resting. reporting cramping 3/10. davis out and cx 1-2/80/-2 11/17/17 07:54 Patient is doing well this morning and is starting starting to feel cramping. + FM + vaginal spotting. 11/17/17 14:21 Patient is comfortable with epidural. +FM 11/17/17 19:46 Pt doing well, denies any pain, comfortable with WENDI. FOB @ BS, supportive : 11/19/17 08:45 Patient doing well, tolerating diet, ambulation and breast feeding and flatus Vaginal - Delivery Provider Delivery Physician/CNM: Melonie Newman - Diagnosis Labor: Induced Rupture of Membranes Type: Artificial Amniotic Fluid Color: Clear Laceration: 1st Degree Repair: 3-0 Delivery Events: Nuchal Cord - Procedures Non-surgical Procedures: Amniotomy, IUPC (IUPC in place-MVUs >200), Other ( Specify) (davis replaced - easy replacement with another davis to cont ripening) - Delivery Non-surgical Procedures: Amniotomy, IUPC (IUPC in place-MVUs >200), Other ( Specify) (davis replaced - easy replacement with another davis to cont ripening) EBL: 200 Data FAB: 12/04/17 Gestational Age: 37 week(s) and 6 day(s) Og Delivery Date: 11/18/17 Delivery Time: 23:04 Sex of : Male Score (1 Min): 8 Score (5 Min): 9 Discharge Information - Discharge Information Prescriptions: Acetaminophen [Tylenol 325mg (*)] 650 mg PO Q4HRS PRN #30 tab PRN Reason: Pain, Mild/Fever, Can Take Po Condition: Good Instruction/Follow Up: Four Weeks (4 weeks wellness check 6 weeks post check)
[2017-11-19] MEDS: CETIRIZINE 10 MG TAB PO SCH (09:26)
== END 2017-11-19 14:30 | disposition home or self-care (01) | DRG 775 ==
LOC: FLD 18:16 → FOB 11-18 02:00
PROVIDERS: ADMIT Advanced Practice Midwife; ATTEND Obstetrics & Gynecology
PROC: 3E0P7VZ Introduction of Hormone into Female Reproductive, Via Natural or Artificial Opening (ICD-10-PCS; 2017-11-15)
PROC: 0U7C7DZ Dilation of Cervix with Intraluminal Device, Via Natural or Artificial Opening (ICD-10-PCS; 2017-11-16)
PROC: 10E0XZZ Delivery of Products of Conception, External Approach (ICD-10-PCS; principal; 2017-11-17)
PROC: 0HQ9XZZ Repair Perineum Skin, External Approach (ICD-10-PCS; principal; 2017-11-17)
PROC: 3E033VJ Introduction of Other Hormone into Peripheral Vein, Percutaneous Approach (ICD-10-PCS; 2017-11-17)
PROC: 10907ZC Drainage of Amniotic Fluid, Therapeutic from Products of Conception, Via Natural or Artificial Opening (ICD-10-PCS; 2017-11-17)
DX: O70.0 First degree perineal laceration during delivery (principal); O13.4 Gestational [pregnancy-induced] hypertension without significant proteinuria, complicating childbirth; O99.52 Diseases of the respiratory system complicating childbirth; J45.909 Unspecified asthma, uncomplicated; Z3A.37 37 weeks gestation of pregnancy; Z37.0 Single live birth
CPT/HCPCS: J2370; J3105